=== PATIENT | male | born 1960 | race Caucasian/White ===

== ENCOUNTER 2021-06-26 06:11 | Outpatient (CLI) | payer OTHER | END 2021-06-26 06:25 | disposition home or self-care (01) | LOC: MRI 06:11 | PROVIDERS: ATTEND Orthopaedic Surgery | DX: M25.562 Pain in left knee (principal); M25.551 Pain in right hip; M25.552 Pain in left hip; M25.561 Pain in right knee | CPT/HCPCS: 73721 ==